=== PATIENT | female | born 1950 ===

== ENCOUNTER 2017-08-21 12:28 | Emergency (ER) | payer OTHER ==
[2017-08-21 12:39] VITALS: BMI 27.4
[2017-08-21] MEDS ORDERED: Sodium Chloride 0.9% 1,000 ML IV STA (13:00)
[2017-08-21 13:35] LABS: BASO # 0.01 K/mm3 (0.0-2.0); BASO % 0.1 % (0.0-3.0); GRAN # 5.67 (1.4-6.5); GRAN % 78.6 % (50.0-68.0); HEMOGLOBIN 14.9 g/dL (12.0-16.0); LYMPH # 0.9 (1.2-3.4); LYMPH % 11.9 % (22.0-35.0); MEAN CELL VOLUME 89.6 fl (80.0-105.0); MEAN CORPUSCULAR HEMOGLOBIN 30.8 pg (25.0-35.0); MEAN CORPUSCULAR HGB CONC 34.4 g/dl (31.0-37.0); MEAN PLATELET VOLUME 10.7 fl (7.0-11.0); MONO # 0.7 (0.1-0.6); MONO % 9.4 % (1.0-6.0); RBC 4.83 10^6/uL (3.5-6.1); RED CELL DISTRIBUTION WIDTH 12.3 % (11.5-14.5); WHITE BLOOD COUNT 7.2 10^3/ul (4.5-11.0)
--- NOTE | 2017-08-21 13:38 | ED PDOC ---
Arrival/HPI - General Chief Complaint: Flu-like Symptoms Time Seen by Provider: 08/21/17 13:00 Historian: Patient - History of Present Illness Narrative History of Present Illness (Text): 08/21/17 13:37 A 67 year old female presents to the emergency department complaining of flu like symptoms for the past 4 days. Patient reports fever, myalgias, cough and rhinorrhea. Patient denies any nausea, vomiting, abdominal pain, chest pain, shortness of breath or any other complaints. Patient denies any recent travel or sick contact. PMD: Dr. Fabian Time/Duration: Other (4 days) Symptom Course: Unchanged Context: Home Past Medical History - Provider Review Nursing Documentation Reviewed: Yes - Reproductive Menopause: Yes - Cardiac Hx Cardiac Disorders: Yes Hx Hypertension: Yes - Psychiatric Hx Substance Use: No Family/Social History - Physician Review Nursing Documentation Reviewed: Yes Family/Social History: No Known Family HX Smoking Status: Never Smoked Hx Alcohol Use: No Hx Substance Use: No Allergies/Home Meds Allergies/Adverse Reactions: Allergies No Known Allergies Allergy (Verified 08/21/17 12:39) Home Medications: Home Meds Medication Instructions Recorded Confirmed Bp Pill 1 tab PO DAILY 08/21/17 Review of Systems - Physician Review All systems were reviewed & negative as marked: Yes - Review of Systems Constitutional: Fevers ENT: Rhinorrhea Respiratory: Cough. absent: SOB Cardiovascular: absent: Chest Pain Gastrointestinal: absent: Abdominal Pain, Nausea, Vomiting Musculoskeletal: Myalgias Physical Exam Vital Signs Reviewed: Yes Vital Signs Temp Pulse Resp BP Pulse Ox 08/21/17 15:58 72 17 121/70 97 08/21/17 15:25 116/56 L 08/21/17 15:21 97.5 F L 79 18 98 08/21/17 12:34 101.2 F H 102 H 20 122/61 97 Temperature: Febrile Blood Pressure: Normal Pulse: Tachycardic Respiratory Rate: Normal Appearance: Positive for: Well-Appearing, Non-Toxic, Comfortable Pain Distress: None Mental Status: Positive for: Alert and Oriented X 3 - Systems Exam Head: Present: Atraumatic, Normocephalic Pupils: Present: PERRL Extroacular Muscles: Present: EOMI Conjunctiva: Present: Normal Mouth: Present: Moist Mucous Membranes Neck: Present: Normal Range of Motion Respiratory/Chest: Present: Clear to Auscultation, Good Air Exchange. No: Respiratory Distress, Accessory Muscle Use Cardiovascular: Present: Regular Rate and Rhythm, Normal S1, S2. No: Murmurs Abdomen: Present: Normal Bowel Sounds. No: Tenderness, Distention, Peritoneal Signs Back: Present: Normal Inspection Upper Extremity: Present: Normal Inspection. No: Cyanosis, Edema Lower Extremity: Present: Normal Inspection. No: Edema Neurological: Present: GCS=15, CN II-XII Intact, Speech Normal Skin: Present: Warm, Dry, Normal Color. No: Rashes Psychiatric: Present: Alert, Oriented x 3, Normal Insight, Normal Concentration Medical Decision Making ED Course and Treatment: 08/21/17 13:37 Impression: A 67 year old female with flu like symptoms Plan: -- Chest xray -- EKG -- Labs -- Influenza A B Stat -- IV fluids, Toradol and Tylenol -- Reassess and disposition Progress Notes: EKG shows NSR at 90 BPM. Interpreted by me. 08/21/17 15:29 Labs grossly normal. Flu symptoms for >4 days. No urinary complaints. Outside tamiflu window. Cxray negative for infiltrate. Dc with zpack due to complaint. Vitals improved after motrin. Will follow-up with PMD - Lab Interpretations Lab Results: 08/21/17 13:13 08/21/17 13:13 Lab Results 08/21/17 13:13: Sodium 134, Potassium 4.4, Chloride 95 L, Carbon Dioxide 26, Anion Gap 18, BUN 21, Creatinine 0.9, Est GFR ( Amer) > 60, Est GFR (Non- Af Amer) > 60, Random Glucose 286 H, Calcium 9.3, Total Bilirubin 0.6, AST 35, ALT 38, Alkaline Phosphatase 86, Total Protein 8.1, Albumin 4.2, Globulin 3.8, Albumin/Globulin Ratio 1.1 08/21/17 13:13: Influenza Typ A,B (EIA) Negative for flu a/b 08/21/17 13:13: WBC 7.2, RBC 4.83, Hgb 14.9, Hct 43.3, MCV 89.6, MCH 30.8, MCHC 34.4, RDW 12.3, Plt Count 224, MPV 10.7, Gran % 78.6 H, Lymph % (Auto) 11.9 L, Garfield % (Auto) 9.4 H, Eos % (Auto) 0.0 L, Baso % (Auto) 0.1, Gran # 5.67, Lymph # 0.9 L, Garfield # 0.7 H, Eos # 0.0, Baso # 0.01 - RAD Interpretation Radiology Orders: 08/21/17 13:00 CHEST TWO VIEWS (PA/LAT) [RAD] Stat - Medication Orders Current Medication Orders: Discontinued Medications Acetaminophen (Tylenol 325mg Tab) 650 mg PO STAT STA Stop: 08/21/17 13:01 Last Admin: 08/21/17 13:23 Dose: 650 mg Sodium Chloride (Sodium Chloride 0.9%) 1,000 mls @ 999 mls/hr IV .Q1H1M STA Stop: 08/21/17 14:00 Last Admin: 08/21/17 13:14 Dose: 999 mls/hr eMAR Start Stop Document 08/21/17 13:14 SF (Rec: 08/21/17 13:14 [id number]) Intravenous Solution Start Date 08/21/17 Start Time 13:14 End Date 08/21/17 End time 14:15 Total Infusion Time 61 Ketorolac Tromethamine (Toradol) 30 mg IVP STAT STA Stop: 08/21/17 13:01 Last Admin: 08/21/17 13:23 Dose: 30 mg MAR Pain Assessment Document 08/21/17 13:23 SF (Rec: 08/21/17 13:23 [id number]) Pain Reassessment Is this a pain reassessment? Yes Sleep Is patient sleeping during reassessment? No Presence of Pain Presence of Pain Yes IVP Administration Document 08/21/17 13:23 SF (Rec: 08/21/17 13:23 [id number]) Charges for Administration # of IVP Administrations 1 - Scribe Statement The provider has reviewed the documentation as recorded by the Shanti Monsivais Provider Scribe Attestation: All medical record entries made by the Scribe were at my direction and personally dictated by me. I have reviewed the chart and agree that the record accurately reflects my personal performance of the history, physical exam, medical decision making, and the department course for this patient. I have also personally directed, reviewed, and agree with the discharge instructions and disposition. Disposition/Present on Arrival - Present on Arrival Any Indicators Present on Arrival: No History of DVT/PE: No History of Uncontrolled Diabetes: No Urinary Catheter: No History of Decub. Ulcer: No History Surgical Site Infection Following: None - Disposition Have Diagnosis and Disposition been Completed?: Yes Diagnosis: Upper respiratory infection Disposition: HOME/ ROUTINE Disposition Time: 15:30 Patient Plan: Discharge Condition: GOOD Discharge Instructions (ExitCare): Upper Respiratory Infection (ED) Additional Instructions: Follow-up with PMD within 2 days. Return to ED if condition worsens. Take full course of antibiotics. Prescriptions: Azithromycin 250 mg PO DAILY #6 tablet Referrals: Aylin Fabian FNP [Primary Care Provider] - Follow up with primary Forms: [facility] (Slovenian)
[2017-08-21 13:44] LABS: ALB/GLOB RATIO 1.1 (1.1-1.8); ALBUMIN 4.2 g/dL (3.0-4.8); ALT/SGPT 38 U/L (7-56); AST/SGOT 35 U/L (14-36); BLOOD UREA NITROGEN 21 mg/dL (7-21); CALCIUM 9.3 mg/dL (8.4-10.5); GFR AFRICAN-AMERICAN > 60; GFR NON-AFRICAN AMERICAN > 60
[2017-08-21 15:22] VITALS: TEMP 97.5
[2017-08-21 15:59] VITALS: BP 121/70; PULSE 72; RESP 17; O2SAT 97
--- NOTE | 2017-08-21 16:44 | RAD ---
HISTORY: cough COMPARISON: No prior. TECHNIQUE: Chest PA and lateral FINDINGS: LUNGS: No active pulmonary disease. PLEURA: No significant pleural effusion identified. No pneumothorax apparent. CARDIOVASCULAR: Normal. OSSEOUS STRUCTURES: No significant abnormalities. VISUALIZED UPPER ABDOMEN: Normal. OTHER FINDINGS: None. IMPRESSION: No active disease.
--- NOTE | 2017-08-22 20:43 | CARD ---
APPROVED REPORT EKG Measurement Heart [id number] <Conclusion> Normal sinus rhythm Possible Left atrial enlargement Septal infarct, age undetermined Abnormal ECG
== END 2017-08-21 15:59 | disposition home or self-care (01) ==
LOC: ED 12:28
DX: J06.9 Acute upper respiratory infection, unspecified (principal); I10 Essential (primary) hypertension
CPT/HCPCS: 71046; 80053; 85025; 87804; 93005; 96361; 96374; 99285; J1885; J7040